=== PATIENT | female | born 1950 | race Caucasian/White ===

== ENCOUNTER → 2017-05-02 | Outpatient (CLI) | payer OTHER, BC ==
[~2017-05-02] MED LIST: LIDOCAINE VISC 2% SOLN 15 ML UDC ONE; MUPIROCIN 2% OINT 22 GM TUBE ONE
== END ==
LOC: WCC 08:05
PROVIDERS: ATTEND Family Medicine
DX: E11.621 Type 2 diabetes mellitus with foot ulcer (principal); L97.422 Non-pressure chronic ulcer of left heel and midfoot with fat layer exposed; I10 Essential (primary) hypertension; E78.2 Mixed hyperlipidemia; F33.1 Major depressive disorder, recurrent, moderate
CPT/HCPCS: 87071; 87075; 87205

== ENCOUNTER → 2017-05-04 | Outpatient (CLI) | payer OTHER, BC ==
--- NOTE | 2017-05-04 15:43 | Diagnostic Imaging Report ---
Examination: Brain MRI without Contrast History: Fall. Head injury. Headache. Memory loss. Comparison studies: None. Technique: Precontrast: Hi resolution Sag T1 with coronal and axial reformats. Axial DWI, T2, T2 flair, gradient echo or SWI Intravenous contrast: None. Findings: Structural lesions: No intra-or extra-axial masses. No hematomas. Atrophy: General: Symmetric and age appropriate. Focal: No disproportionate lobar, hippocampal, mesencephalic, pontine, or cerebellar atrophy. Tong matter: Cortex:No signal abnormalities. No encephalomalacia. Basal ganglia: No atrophy or signal abnormalities. Thalami: No signal abnormalities. Microhemorrhages: None. White matter signal intensity: No signal abnormalities. Subarachnoid spaces: There is increased signal on the FLAIR sequence within the right inferior temporal gyrus sulci posteriorly as well as in the right cerebellar folia, which could be related to artifact or fluid within the sulci. Ventricles: Normal in size and configuration. No hydrocephalus. Hippocampi, fornix and mammillary bodies: Normal in size and symmetric. Other: Skull: No bone marrow abnormalities. Vessels: Expected flow voids present in the major arteries and dural sinuses.. Sella: Normal in size. No intra-or suprasellar abnormalities. Cranio-cervical junction: No abnormalities. Patent foramen magnum. No Chiari one malformation. Paranasal sinuses: No T2 hyperintense mucosal thickening. IMPRESSION: 1. Increased signal within the posterior right inferior temporal gyrus sulci and right cerebellar folia which could be artifact or fluid within the sulci. Given the history of fall, a noncontrast head CT is recommended for further evaluation. 2. Normal brain volume. Signed by: Dr. Charisma Wilson M.D. on 05/04/2017 3:39 PM
== END ==
LOC: MRI 07:28
PROVIDERS: ATTEND Radiology Neuroradiology
DX: S91.309A Unspecified open wound, unspecified foot, initial encounter (principal); E11.42 Type 2 diabetes mellitus with diabetic polyneuropathy; S06.9X9A Unspecified intracranial injury with loss of consciousness of unspecified duration, initial encounter
CPT/HCPCS: 70551

== ENCOUNTER → 2017-05-09 | Outpatient (CLI) | payer OTHER, BC ==
[~2017-05-09] MED LIST changes: -LIDOCAINE VISC 2% SOLN 15 ML UDC ONE
== END ==
LOC: WCC 08:09
PROVIDERS: ATTEND Family Medicine
DX: E11.621 Type 2 diabetes mellitus with foot ulcer (principal); L97.422 Non-pressure chronic ulcer of left heel and midfoot with fat layer exposed; I10 Essential (primary) hypertension; E78.2 Mixed hyperlipidemia; F33.1 Major depressive disorder, recurrent, moderate

== ENCOUNTER → 2017-05-16 | Outpatient (CLI) | payer OTHER, BC | LOC: WCC 08:18 | PROVIDERS: ATTEND Family Medicine | DX: E11.621 Type 2 diabetes mellitus with foot ulcer (principal); L97.422 Non-pressure chronic ulcer of left heel and midfoot with fat layer exposed; E78.2 Mixed hyperlipidemia; I10 Essential (primary) hypertension; F33.1 Major depressive disorder, recurrent, moderate ==

== ENCOUNTER → 2017-05-23 | Outpatient (CLI) | payer OTHER, BC ==
[~2017-05-23] MED LIST changes: +LIDOCAINE VISC 2% SOLN 15 ML UDC ONE
== END ==
LOC: WCC 08:04
PROVIDERS: ATTEND Family Medicine
DX: E11.621 Type 2 diabetes mellitus with foot ulcer (principal); L97.422 Non-pressure chronic ulcer of left heel and midfoot with fat layer exposed; I10 Essential (primary) hypertension; E78.2 Mixed hyperlipidemia; F33.1 Major depressive disorder, recurrent, moderate

== ENCOUNTER → 2017-06-06 | Outpatient (CLI) | payer OTHER, BC ==
[~2017-06-06] MED LIST changes: +COLLAGENASE OINTMENT 30 GM TUBE ONE
== END ==
LOC: WCC 08:35
PROVIDERS: ATTEND Family Medicine
DX: E11.621 Type 2 diabetes mellitus with foot ulcer (principal); L97.422 Non-pressure chronic ulcer of left heel and midfoot with fat layer exposed; I10 Essential (primary) hypertension; E78.2 Mixed hyperlipidemia; F33.1 Major depressive disorder, recurrent, moderate

== ENCOUNTER → 2017-06-20 | Outpatient (CLI) | payer OTHER, BC ==
[~2017-06-20] MED LIST changes: -COLLAGENASE OINTMENT 30 GM TUBE ONE
== END ==
LOC: WCC 08:19
PROVIDERS: ATTEND Family Medicine
DX: E11.621 Type 2 diabetes mellitus with foot ulcer (principal); L97.422 Non-pressure chronic ulcer of left heel and midfoot with fat layer exposed; E78.2 Mixed hyperlipidemia; F33.1 Major depressive disorder, recurrent, moderate; I10 Essential (primary) hypertension

== ENCOUNTER → 2017-07-04 | Outpatient (CLI) | payer OTHER, BC ==
[~2017-07-04] MED LIST changes: -LIDOCAINE VISC 2% SOLN 15 ML UDC ONE
== END ==
LOC: WCC 08:46
PROVIDERS: ATTEND Family Medicine
DX: E11.621 Type 2 diabetes mellitus with foot ulcer (principal); L97.422 Non-pressure chronic ulcer of left heel and midfoot with fat layer exposed; I10 Essential (primary) hypertension; E78.2 Mixed hyperlipidemia; F33.1 Major depressive disorder, recurrent, moderate

== ENCOUNTER → 2017-07-18 | Outpatient (CLI) | payer OTHER, BC ==
[~2017-07-18] MED LIST changes: +LIDOCAINE VISC 2% SOLN 15 ML UDC ONE; -MUPIROCIN 2% OINT 22 GM TUBE ONE
== END ==
LOC: WCC 08:26
PROVIDERS: ATTEND Family Medicine
DX: E11.621 Type 2 diabetes mellitus with foot ulcer (principal); L97.422 Non-pressure chronic ulcer of left heel and midfoot with fat layer exposed; I10 Essential (primary) hypertension; E78.2 Mixed hyperlipidemia; F33.1 Major depressive disorder, recurrent, moderate

== ENCOUNTER → 2017-08-01 | Outpatient (CLI) | payer OTHER, BC ==
[~2017-08-01] MED LIST changes: +COLLAGENASE OINTMENT 30 GM TUBE ONE; +MUPIROCIN 2% OINT 22 GM TUBE ONE
== END ==
LOC: WCC 08:25
PROVIDERS: ATTEND Family Medicine
DX: E11.621 Type 2 diabetes mellitus with foot ulcer (principal); L97.422 Non-pressure chronic ulcer of left heel and midfoot with fat layer exposed; I10 Essential (primary) hypertension; E78.2 Mixed hyperlipidemia; F33.1 Major depressive disorder, recurrent, moderate

== ENCOUNTER → 2017-08-15 | Outpatient (CLI) | payer OTHER, BC | LOC: WCC 10:55 | PROVIDERS: ATTEND Family Medicine | DX: E11.621 Type 2 diabetes mellitus with foot ulcer (principal); L97.422 Non-pressure chronic ulcer of left heel and midfoot with fat layer exposed; L97.511 Non-pressure chronic ulcer of other part of right foot limited to breakdown of skin; I10 Essential (primary) hypertension; E78.2 Mixed hyperlipidemia; F33.1 Major depressive disorder, recurrent, moderate ==

== ENCOUNTER → 2017-08-29 | Outpatient (CLI) | payer OTHER, BC ==
[~2017-08-29] MED LIST changes: -COLLAGENASE OINTMENT 30 GM TUBE ONE; -MUPIROCIN 2% OINT 22 GM TUBE ONE
== END ==
LOC: WCC 08:15
PROVIDERS: ATTEND Family Medicine
DX: E11.621 Type 2 diabetes mellitus with foot ulcer (principal); L97.422 Non-pressure chronic ulcer of left heel and midfoot with fat layer exposed; L97.511 Non-pressure chronic ulcer of other part of right foot limited to breakdown of skin; I10 Essential (primary) hypertension; E78.2 Mixed hyperlipidemia; F33.1 Major depressive disorder, recurrent, moderate

== ENCOUNTER 2017-09-09 19:30 | Emergency (ER) | payer OTHER, BC ==
[~2017-09-09] VITALS: Ht 172.7 cm; Wt 115.2 kg
--- OUTSIDE RECORDS SUMMARY | 2017-09-09 19:33 | XMS REPORT | Clinical Summary ---
Author Author [facility] Address Unknown Phone Unavailable Care Team Providers Care Trouble Operator Name Role Phone Pooja Garcia MD PCP Allergies Active Allergy Reactions Severity Noted Date Comments Cefaclor Anaphylaxis High 02/15/2016 Penicillins Rash Low 02/15/2016 Current Medications Prescription Sig. Disp. Refills Start End Date Status Date ALPRAZolam (XANAX) 0.25 01/27/20 Active MG tablet 16 amLODIPine (NORVASC) 10 11/25/19 Active MG tablet 16 atorvastatin (LIPITOR) 10 12/10/19 Active MG tablet 16 bisoprolol (ZEBETA) 5 MG 12/21/19 Active tablet 16 FARXIGA 10 mg tablet 01/26/20 Active 16 diclofenac (VOLTAREN) 1 % 02/04/20 Active gel 16 DULoxetine (CYMBALTA) 60 11/25/19 Active MG capsule 16 HYDROcodone-acetaminophen 12/28/19 Active (NORCO 10-325) 10-325 mg 16 per tablet lisinopril 01/06/20 Active (PRINIVIL,ZESTRIL) 5 MG 16 tablet metFORMIN (GLUCOPHAGE) 11/25/19 Active 1000 MG tablet 16 BD INSULIN PEN NEEDLE UF 12/03/19 Active MINI 31 gauge x 3/16" 16 needle LYRICA 75 mg capsule 12/17/19 Active 16 diphenhydrAMINE Take 25 mg by mouth Active (BENADRYL) 25 mg tablet nightly as needed for allergies. calcium citrate-vitamin Take 1 tablet by mouth 2 Active D3 (CITRACAL+D) 315-200 (two) times a day. mg-unit per tablet omega-3 fatty Take by mouth. Active acids-vitamin E (FISH OIL) 1,000 mg capsule docusate sodium (COLACE) Take 100 mg by mouth 2 Active 100 MG capsule (two) times a day. famotidine (PEPCID) 20 MG Take 20 mg by mouth 2 Active tablet (two) times a day. L. acidophilus-L. Take by mouth. Active rhamnosus (PROBIOTIC) 15 billion cell capsule liraglutide (VICTOZA Inject 1.8 mg under the Active 2-MARK) 0.6 mg/0.1 mL (18 skin daily. mg/3 mL) pen injector cyclobenzaprine Take 5 mg by mouth 2 Active (FLEXERIL) 5 MG tablet (two) times a day as needed for muscle spasms. fexofenadine (SAVANAH) Take 1 tablet (180 mg 30 tablet 0 02/15/20 180 MG tabletIndications: total) by mouth daily. 16 17 Bee sting, undetermined intent, initial encounter Active Problems Problem Noted Date Uterine cancer 05/14/1982 Neuropathy Overview: feet Hypertension Hyperlipidemia GERD (gastroesophageal reflux disease) Diabetes Depression Chronic right shoulder pain Anxiety Seasonal allergies Back pain Raynaud disease Family History Medical History Relation Name Comments Lung cancer Father Heart attack Maternal Grandfather Stroke Maternal Grandmother Heart attack Mother Heart attack Paternal Grandmother Heart attack Sister Relation Name Status Comments Father Maternal Grandfather Maternal Grandmother Mother Paternal Grandmother Sister Social History Tobacco Use Types Packs/Day Years Used Date Former Smoker Cigarettes 0.5 5 Comments: quit at age 23 Sex Assigned at Date Recorded Not on file Last Filed Vital Signs Not on file Plan of Treatment Health Maintenance Due Date Last Done Comments FOOT EXAM 1962 OPHTHALMOLOGY EXAM 1962 PAP SMEAR 1973 COLONOSCOPY 2002 MAMMOGRAM 2002 SHINGRIX VACCINE (#1) 2002 ZOSTER VACCINE 2012 INFLUENZA VACCINE 12/12/2017 Results Not on fileafter 09/08/2016 Insurance Payer Benefit Subscriber ID Type Phone Address Plan / Group [facility] xxxxxxxxx [address] CIGNA CIGNA OPEN xxxxxxxxxxx HMO ACCESS[place] [address]
--- OUTSIDE RECORDS SUMMARY | 2017-09-09 19:33 | XMS REPORT ---
Author Author [facility] Address Unknown Phone Unavailable Care Team Providers Care Executive Chairman Name Role Phone CHRISTINE POLK Unavailable Unavailable Problems This patient has no known problems. Allergies, Adverse Reactions, Alerts This patient has no known allergies or adverse reactions. Medications This patient has no known medications. Results Test Description Test Time Test Comments Text Results Atomic Results Result Comments MRI BRAIN WO [place] [address] [place] [address] Patient Name: VASQUEZ HAWTHORNE MR #: [id number] : 1950 Age/Sex: 66/F Req # : [id number] Adm Physician: Ordered by: CHRISTINE POLK MD Report #: [id number] Location: MRI Room/Bed: Procedure: [id number] MRI/MRI BRAIN WO Exam Date: 05/04/17 Exam Time: 0800 REPORT STATUS: Signed Examination: Brain MRI without Contrast History: Fall. Head injury. Headache. Memory loss. Comparison studies: None. Technique: Precontrast: Hi resolution Sag T1 with coronal and axial reformats. Axial DWI, T2, T2 flair, gradient echo or SWI Intravenous contrast: None. Findings: Structural lesions: No intra-or extra- axial masses. No hematomas. Atrophy: General: Symmetric and age appropriate. Focal: No disproportionate lobar, hippocampal, mesencephalic, pontine, or cerebellar atrophy. Tong matter: Cortex:No signal abnormalities. No encephalomalacia. Basal ganglia: No atrophy or signal abnormalities. Thalami: No signal abnormalities. Microhemorrhages: None. White matter signal intensity: No signal abnormalities. Subarachnoid spaces: There is increased signal on the FLAIR sequence within the right inferior temporal gyrus sulci posteriorly as well as in the right cerebellar folia, which could be related to artifact or fluid within the sulci. Ventricles: Normal in size and configuration. No hydrocephalus. Hippocampi, fornix and mammillary bodies: Normal in size and symmetric. Other: Skull: No bone marrow abnormalities. Vessels: Expected flow voids present in the major arteries and dural sinuses.. Sella: Normal in size. No intra-or suprasellar abnormalities. Cranio-cervical junction: No abnormalities. Patent foramen magnum. No Chiari one malformation. Paranasal sinuses: No T2 hyperintense mucosal thickening. IMPRESSION: 1. Increased signal within the posterior right inferior temporal gyrus sulci and right cerebellar folia which could be artifact or fluid within the sulci. Given the history of fall, a noncontrast head CT is recommended for further evaluation. 2. Normal brain volume. Signed by: Dr. Charisma Wilson M.D. on 05/04/2017 3:39 PM Dictated By: CHARISMA LANDEROS MD 153 Transcribed By: JACINTO on 05/04/17 153 COPY TO: CHRISTINE POLK MD
[2017-09-09] MEDS ORDERED: PROMETHAZINE HCL (IM) 25 MG/ML VIAL IV STA (19:54)
[2017-09-09] MEDS ORDERED: SODIUM CHLORIDE 0.9% 1000ML 1,000 ML IV STA (19:54)
[2017-09-09] MEDS ORDERED: ASPIRIN 81 MG CHEW TAB PO ONE (20:00)
[2017-09-09] MEDS ORDERED: ONDANSETRON HCL 4 MG ORAL DISINTEGRATING TAB PO ONE (20:15)
--- NOTE | 2017-09-09 20:36 | Diagnostic Imaging Report ---
EXAM: CT Abdomen and Pelvis WITHOUT contrast INDICATION: Flank pain, stone COMPARISON: None. TECHNIQUE: Abdomen and pelvis were scanned utilizing a multidetector helical scanner from the lung base to the pubic symphysis without administration of IV contrast. Absence of intravenous contrast decreases sensitivity for detection of focal lesions and vascular pathology. Coronal and sagittal reformations were obtained. Stone protocol is performed. IV CONTRAST: None. ORAL CONTRAST: None RADIATION DOSE: Total DLP: 949.73 mGy*cm Estimated effective dose: (DLP x 0.015 x size factor) mSv COMPLICATIONS: None FINDINGS: LINES and TUBES: None. LOWER THORAX: Unremarkable HEPATOBILIARY: The liver is diffuse hypodense compared to the spleen, consistent with diffuse hepatic diffuse hepatic steatosis. No focal hepatic lesions. No biliary ductal dilation. GALLBLADDER: Gallbladder has been surgically resected. SPLEEN: No splenomegaly. PANCREAS: No focal masses or ductal dilatation. ADRENALS: No adrenal nodules KIDNEYS/URETERS: No hydronephrosis. 2 cm hypodensity in the inferior pole lateral aspect of the right kidney measuring about 20HU suggestive of a simple or minimally complicated cyst. No stones. GI TRACT: No abnormal distention, wall thickening, or evidence of bowel obstruction. Appendix is normal. PELVIC ORGANS/BLADDER: Unremarkable. LYMPH NODES: No lymphadenopathy. VESSELS: Unremarkable. PERITONEUM / RETROPERITONEUM: No free air or fluid. BONES: There are moderate degenerative changes in the lumbar spine associated with levorotoscoliosis of the thoracolumbar junction. SOFT TISSUES: Unremarkable. IMPRESSION: 1. No evidence of hydronephrosis or nephrolithiasis. 2. Diffuse hepatic steatosis. Signed by: Dr. Abdias Manley M.D. on 09/09/2017 8:32 PM
[2017-09-09 20:57] LABS: BASOPHILS # (AUTO) 0.1 (0.0-0.1); BASOPHILS % 0.6 % (0.0-1.0); EOSINOPHILS # (AUTO) 0.1 (0.0-0.4); EOSINOPHILS % 1.3 % (0.0-6.0); HEMATOCRIT 46.7 % (34.2-44.1); HEMOGLOBIN 15.2 g/dL (12.0-16.0); LYMPHOCYTES # (AUTO) 2.8 (1.0-3.2); LYMPHOCYTES % 32.3 % (18.0-39.1); MEAN CORPUSCULAR HGB CONC 32.5 g/dL (31-35); MEAN CORPUSCULAR VOLUME 89.1 fL (81-99); MONOCYTES # (AUTO) 0.5 (0.2-0.8); MONOCYTES % 6.1 % (4.4-11.3); NEUTROPHILS # (AUTO) 5.1 (2.1-6.9); NEUTROPHILS % 59.5 % (38.7-80.0); PLATELET COUNT 218 x10e3/uL (140-360); RED BLOOD COUNT 5.24 x10e6/uL (3.6-5.1); RED CELL DISTRIBUTION WIDTH 14.3 % (11.7-14.4)
[2017-09-09 21:19] LABS: ALANINE AMINOTRANSFERASE 49 IU/L (0-55); ALBUMIN 4.3 g/dL (3.5-5.0); ALBUMIN/GLOBULIN RATIO 1.1 (0.8-2.0); ALKALINE PHOSPHATASE 54 IU/L (40-150); AMYLASE 48 U/L (25-125); ANION GAP 18.8 mmol/L (8-16); BLOOD UREA NITROGEN 18 mg/dL (7-26); BUN/CREATININE RATIO 19 (6-25); CALCIUM 10.9 mg/dL (8.4-10.2); CARBON DIOXIDE 25 mmol/L (22-29); CHLORIDE 102 mmol/L (98-107); CREATINE KINASE 43 IU/L (29-168); CREATININE, SERUM 0.94 mg/dL (0.57-1.11); EST GLOMERULAR FILTRATION RATE 60 ML/MIN (60-); GLUCOSE 195 mg/dL (74-118); LIPASE 71 U/L (8-78); POTASSIUM 3.8 mmol/L (3.5-5.1); SODIUM 142 mmol/L (136-145)
[2017-09-09 21:39] LABS: THYROID STIMULATING HORMONE 1.354 uIU/mL (0.350-4.940)
[2017-09-09 21:57] LABS: CLARITY,URINE CLEAR (CLEAR); COLOR,URINE YELLOW (YELLOW); LEUKOCYTE ESTERASE ,URINE NEGATIVE (NEGATIVE); NITRITE,URINE NEGATIVE (NEGATIVE); PROTEIN,URINE DIPSTICK NEGATIVE (NEGATIVE)
[2017-09-09 21:58] LABS: BILIRUBIN,URINE NEGATIVE (NEGATIVE); KETONES,URINE TRACE (NEGATIVE); URINE UROBILINOGEN 0.2 mg/dL (0.2 - 1)
[2017-09-09 22:13] LABS: EPITHELIAL CELLS,URINE RARE /LPF
[2017-09-09 22:24] VITALS: BP 108/62
== END 2017-09-09 22:35 | disposition home or self-care (01) ==
LOC: ER 19:30
DX: R11.2 Nausea with vomiting, unspecified (principal); R10.9 Unspecified abdominal pain; I10 Essential (primary) hypertension; E11.9 Type 2 diabetes mellitus without complications; E78.5 Hyperlipidemia, unspecified; K21.9 Gastro-esophageal reflux disease without esophagitis; I73.00 Raynaud's syndrome without gangrene; G62.9 Polyneuropathy, unspecified; G89.29 Other chronic pain
CPT/HCPCS: 36415; 74176; 80053; 81001; 82150; 82550; 82553; 82948; 83690; 83735; 84443; 84484; 85025; 99284; J7030

== ENCOUNTER 2017-09-17 14:51 | Inpatient (IN) | payer OTHER, BC ==
[~2017-09-17] VITALS: Ht 172.7 cm; Wt 118.9 kg
--- OUTSIDE RECORDS SUMMARY | 2017-09-17 14:53 | XMS REPORT | Clinical Summary ---
Author Author [facility] Address Unknown Phone Unavailable Care Team Providers Care Simulation Developer Name Role Phone Pooja Garcia MD PCP [...] INFLUENZA VACCINE 12/12/2017 Results Not on fileafter 09/16/2016 Insurance Payer Benefit Subscriber ID Type Phone Address Plan / Group [facility] xxxxxxxxx O [address] CIGNA CIGNA OPEN xxxxxxxxxxx H[place] ACCESS[place] [address]
--- OUTSIDE RECORDS SUMMARY | 2017-09-17 14:53 | XMS REPORT | Continuity of Care Document ---
Author Author [facility] Organization [facility] Address [address] [place] [address] Phone Unavailable Care Team Providers Care Regional Director Name Role Phone REUBEN LÓPEZ MD PCP Insurance Providers Guarantor Freya Hawthorne Address [address] [place] [address] Email Payer [facility] Hmo Policy Number [id number] Subscriber's Name Hawthorne,Freya S Relationship 18 Self / Same As Patient Group Number [id number] Group Name [facility] Effective Date 17 Payer [facility] Policy Number [id number] Subscriber's Name Natividad Hawthornelyjalyn Magallon Relationship 18 Self / Same As Patient Group Number [id number] Group Name [facility] Effective Date 16 Advance Directives Directive Response Recorded Date/Time Does the patient have an advance directive? No 09/09/17 7:27pm If yes, is advance directive on file with [facility]? No 05/01/17 2:38pm If not on file with [facility] will patient provide a copy? No 05/01/17 2:38pm Do you have a Directive to Physician? No 09/09/17 7:27pm Do you have a Medical Power of Taxi Proprietor? No 09/09/17 7:27pm Do you have an out of hospital Do Not Resuscitate Order? No 09/09/17 7:27pm Do you have any special needs we should be aware of? No 09/09/17 7:27pm Do you have a support person here with you today? Yes 09/09/17 7:27pm Did patient receive Notice of Privacy Practices? Yes 09/09/17 7:27pm Did patient receive patient rights and responsibilities? Yes 09/09/17 7:27pm Problems No problem information available. Medications No medication information available. Social History Smoking Status Start Date Stop Date Never Smoker Hospital Discharge Instructions No hospital discharge instruction information available. Plan of Care Discharge Date 09/09/17 10:35pm Disposition HOME, SELF-CARE Condition at Discharge Stable Instructions/Education Provided Flank Pain Vomiting - Adult Forms Provided Work/School Excuse Prescriptions See Medication Section Additional Instructions/Education FOLLOW UP WITH YOUR DOCTOR IN 2 DAYS IF NOT BETTER TAKE MEDICATIONS DIRECTED DRINK PLENTY OF FLUIDS TAKE CLEAR LIQUIDS ONLY (FREQUENT SIPS) FOR THE NEXT 24 HOURS Functional Status No functional status information available. Allergies, Adverse Reactions, Alerts Allergen Type Severity Reaction Status Last Updated Penicillin Allergy Unknown Active 09/09/17 Cephalosporins Allergy Unknown Active 09/09/17 Cefaclor Allergy Unknown Active 09/09/17 DTAP VACCINE Allergy Unknown Active 09/09/17 Immunizations No immunization information available. Vital Signs Acute Vital Signs Vital Response Date/Time Temperature (Fahrenheit) 98.3 degrees F (97.6 - 99.5) 09/09/2017 10:24pm Pulse Pulse Rate (adult) 99 bpm (60 - 90) 09/09/2017 10:24pm Respiratory Rate 18 bpm (12 - 24) 09/09/2017 10:24pm Blood Pressure 108/62 mm Hg 09/09/2017 10:24pm Height 5 ft 8 in 09/09/2017 7:56pm Weight 254 lb 09/09/2017 7:56pm Body Mass Index 38.6 kg/m^2 09/09/2017 7:56pm Results Laboratory Results Test Name Result Units Flags Reference Collection Date/Time Result Date/ Time Comments White Blood Count 8.62 x10e3/uL 4.8-10.8 09/09/2017 7:50pm 09/09/2017 9 :10pm Red Blood Count 5.24 x10e6/uL H 3.6-5.1 09/09/2017 7:50pm 09/09/2017 9: 10pm Hemoglobin 15.2 g/dL 12.0-16.0 09/09/2017 7:50pm 09/09/2017 9:10pm Hematocrit 46.7 % H 34.2-44.1 09/09/2017 7:50pm 09/09/2017 9:10pm Mean Corpuscular Volume 89.1 fL 81-99 09/09/2017 7:50pm 09/09/2017 9: 10pm Mean Corpuscular Hemoglobin 29.0 pg 28-32 09/09/2017 7:50pm 09/09/2017 9:10pm Mean Corpuscular Hemoglobin Concent 32.5 g/dL 31-35 09/09/2017 7:50pm 09/09/2017 9:10pm Red Cell Distribution Width 14.3 % 11.7-14.4 09/09/2017 7:502017 9:10pm Platelet Count 218 x10e3/uL 140-360 09/09/2017 7:50pm 09/09/2017 9: 10pm Neutrophils (%) (Auto) 59.5 % 38.7-80.0 09/09/2017 7:50pm 09/09/2017 9: 10pm Lymphocytes (%) (Auto) 32.3 % 18.0-39.1 09/09/2017 7:50pm 09/09/2017 9: 10pm Monocytes (%) (Auto) 6.1 % 4.4-11.3 09/09/2017 7:5009/09/2017 9: 10pm Eosinophils (%) (Auto) 1.3 % 0.0-6.0 09/09/2017 7:50pm 09/09/2017 9: 10pm Basophils (%) (Auto) 0.6 % 0.0-1.0 09/09/2017 7:pm 09/09/2017 9:10pm IM GRANULOCYTES % 0.2 % 0.0-1.0 09/09/2017 7:50pm 09/09/2017 9:10pm Neutrophils # (Auto) 5.1 2.1-6.9 09/09/2017 7:5009/09/2017 9:10pm Lymphocytes # (Auto) 2.8 1.0-3.2 09/09/2017 7:50pm 09/09/2017 9:10pm Monocytes # (Auto) 0.5 0.2-0.8 09/09/2017 7:50pm 09/09/2017 9:10pm Eosinophils # (Auto) 0.1 0.0-0.4 09/09/2017 7:50pm 09/09/2017 9:10pm Basophils # (Auto) 0.1 0.0-0.1 09/09/2017 7:50pm 09/09/2017 9:10pm Absolute Immature Granulocyte (auto 0.02 x10e3/uL 0-0.1 09/09/2017 7: 50pm 09/09/2017 9:10pm Urine Color YELLOW YELLOW 09/09/2017 8:40pm 09/09/2017 9:58pm Urine Clarity CLEAR CLEAR 09/09/2017 8:40pm 09/09/2017 9:58pm Urine Specific Milner 1.015 1.010-1.025 09/09/2017 8:40pm 2017 9:58pm Urine pH 5 5 - 7 09/09/2017 8:40pm 09/09/2017 9:58pm Urine Leukocyte Esterase NEGATIVE NEGATIVE 09/09/2017 8:40pm 2017 9:58pm Urine Nitrite NEGATIVE NEGATIVE 09/09/2017 8:40pm 09/09/2017 9:58pm Urine Protein NEGATIVE NEGATIVE 09/09/2017 8:40pm 09/09/2017 9:58pm Urine Glucose (UA) 3+ H NEGATIVE 09/09/2017 8:40pm 09/09/2017 9:58pm Urine Ketones TRACE H NEGATIVE 09/09/2017 8:40pm 09/09/2017 9:58pm Urine Urobilinogen 0.2 mg/dL 0.2 - 1 09/09/2017 8:40pm 09/09/2017 9: 58pm Urine Bilirubin NEGATIVE NEGATIVE 09/09/2017 8:40pm 09/09/2017 9: 58pm Urine Blood TRACE H NEGATIVE 09/09/2017 8:40pm 09/09/2017 9:58pm Urine WBC NONE /HPF 0-5 09/09/2017 8:40pm 09/09/2017 10:13pm Urine RBC NONE /HPF 0-5 09/09/2017 8:40pm 09/09/2017 10:13pm Urine Bacteria NONE /HPF NONE 09/09/2017 8:40pm 09/09/2017 10:13pm Urine Epithelial Cells RARE /LPF NONE 09/09/2017 8:40pm 09/09/2017 10: 13pm Sodium Level 142 mmol/L 136-145 09/09/2017 7:50pm 09/09/2017 9:22pm Potassium Level 3.8 mmol/L 3.5-5.1 09/09/2017 7:50pm 09/09/2017 9:22pm Chloride Level 102 mmol/L 98-107 09/09/2017 7:50pm 09/09/2017 9:22pm Carbon Dioxide Level 25 mmol/L 09/09/2017 7:50pm 09/09/2017 9: 22pm Anion Gap 18.8 mmol/L H 8-16 09/09/2017 7:50pm 09/09/2017 9:22pm Blood Urea Nitrogen 18 mg/dL 12-0609/09/2017 7:50pm 09/09/2017 9:22pm Creatinine 0.94 mg/dL 0.57-1.11 09/09/2017 7:50pm 09/09/2017 9:22pm BUN/Creatinine Ratio 19 6-09/09/2017 7:50pm 09/09/2017 9:22pm Estimat Glomerular Filtration Rate 60 ML/MIN 60- 09/09/2017 7:50pm 9:22pm Ranges were taken from the National Kidney Disease Education Program and the National Kidney Foundation literature. Reference ranges: 60 or greater: Normal 16-59 (for 3 consecutive months): Chronic kidney disease 15 or less: Kidney failure Glucose Level 195 mg/dL H 74-118 09/09/2017 7:50pm 09/09/2017 9:22pm Calcium Level 10.9 mg/dL H 8.4-10.2 09/09/2017 7:50pm 09/09/2017 9:22pm Bedside Glucose 176 mg/dL H 70-120 09/09/2017 8:00pm 09/09/2017 8:41pm Meter ID: [id number] Magnesium Level 2.0 MG/DL 1.3-2.1 09/09/2017 7:50pm 09/09/2017 9:22pm Total Bilirubin 0.7 mg/dL 0.2-1.2 09/09/2017 7:50pm 09/09/2017 9:22pm Aspartate Amino Transf (AST/SGOT) 38 IU/L H 5-34 09/09/2017 7:50pm 09/09 9:22pm Alanine Aminotransferase (ALT/SGPT) 49 IU/L 0-55 09/09/2017 7:50pm 9:22pm Total Protein 8.1 g/dL 6.5-8.1 09/09/2017 7:50pm 09/09/2017 9:22pm Albumin 4.3 g/dL 3.5-5.0 09/09/2017 7:50pm 09/09/2017 9:22pm Globulin 3.8 g/dL H 2.3-3.5 09/09/2017 7:50pm 09/09/2017 9:22pm Albumin/Globulin Ratio 1.1 0.8-2.0 09/09/2017 7:5009/09/2017 9: 22pm Alkaline Phosphatase 54 IU/L 40-150 09/09/2017 7:5009/09/2017 9: 22pm Creatine Kinase 43 IU/L 29-168 09/09/2017 7:50pm 09/09/2017 9:22pm Creatine Kinase MB 1.50 ng/mL 0-5.0 09/09/2017 7:50pm 09/09/2017 10: 06pm Troponin I < 0.001 ng/mL 0-0.300 09/09/2017 7:5009/09/2017 10:06pm Amylase Level 48 U/L 25-125 09/09/2017 7:5009/09/2017 9:22pm Lipase 71 U/L 8-78 09/09/2017 7:50pm 09/09/2017 9:22pm Thyroid Stimulating Hormone (TSH) 1.354 uIU/mL 0.350-4.940 09/09/2017 7: 50pm 09/09/2017 10:06pm Microbiology Results Procedure Source Organism/Result Collection Date/Time Result Date/Time Result Status Wound Culture Foot, Left STREP AGALACTIAE GROUP B 05/02/2017 9:30am 2016 10:25am Final Procedures Procedure Status Date Provider(s) Magnetic resonance imaging of brain without contrast Active 05/04/[address] of abdomen and pelvis without contrast Active 09/09/17 TATIANA ESCALANTE MD Encounters Encounter Location Arrival/Admit Date Discharge/Depart Date Attending Provider Departed Emergency Room [facility] 09/09/17 7:30pm 10:35pm TATIANA ESCALANTE MD Registered Clinic [facility] 08/29/17 8:15am MAGO MCKEON MD Registered Clinic [facility] 08/15/17 10:55am MAGO MCKEON MD Registered Clinic [facility] 08/01/17 8:25am MAGO MCKEON MD Registered Clinic [facility] 07/18/17 8:26am MAGO MCKEON MD Registered Clinic [facility] 07/04/17 8:46am MAGO MCKEON MD Registered Clinic [facility] 06/20/17 8:19am MAGO MCKEON MD Registered Clinic [facility] 06/06/17 8:35am MAGO MCKEON MD Registered Clinic [facility] 05/23/17 8:04am MAGO MCKEON MD Registered Clinic [facility] 05/16/17 8:18am MAGO MCKEON MD Registered Clinic [facility] 05/09/17 8:09am MAGO MCKEON MD Registered Clinic [facility] 05/04/17 7:28am CHRISTINE POLK MD Registered Clinic [facility] 05/02/17 8:05am MAGO MCKEON MD
[2017-09-17] MEDS ORDERED: SODIUM CHLORIDE 0.9% 1000ML 1,000 ML IV STA (15:18)
[2017-09-17 16:27] LABS: BASOPHILS # (AUTO) 0.1 (0.0-0.1); BASOPHILS % 0.4 % (0.0-1.0); HEMATOCRIT 42.1 % (34.2-44.1); HEMOGLOBIN 13.8 g/dL (12.0-16.0); LYMPHOCYTES # (AUTO) 0.5 (1.0-3.2); LYMPHOCYTES % 3.7 % (18.0-39.1); MEAN CORPUSCULAR HEMOGLOBIN 29.2 pg (28-32); MEAN CORPUSCULAR HGB CONC 32.8 g/dL (31-35); MEAN CORPUSCULAR VOLUME 89.2 fL (81-99); NEUTROPHILS # (AUTO) 12.5 (2.1-6.9); NEUTROPHILS % 87.9 % (38.7-80.0); PLATELET COUNT 167 x10e3/uL (140-360); RED BLOOD COUNT 4.72 x10e6/uL (3.6-5.1); RED CELL DISTRIBUTION WIDTH 14.5 % (11.7-14.4)
[2017-09-17] MEDS ORDERED: ACETAMINOPHEN 650 MG SUPP PR ONE (16:30)
--- NOTE | 2017-09-17 16:40 | Diagnostic Imaging Report ---
PROCEDURE:FOOT COMPLETE BILATERAL INDICATION:Bilateral feet ulcers. COMPARISON:None. FINDINGS: Status post amputation of the left first digit at the level of proximal interphalangeal joint, right first toe at the level of distal portion of proximal phalanx, and right fifth toe at the level of tarsometatarsal joint. Erosion versus amputation of the right fourth digit at the level of the proximal interphalangeal joint. Bilateral second through fourth metatarsal mild periosteal thickening/irregularity. No erosion or abnormal soft tissue calcification. No acute displaced fracture or dislocation. Bilateral small dorsal and calcaneal spurring as well as a small plantar right calcaneal enthesophyte. Millis screw overlying right calcaneus. Soft tissues are unremarkable. CONCLUSION: No definite radiographic evidence of osteomyelitis. Multiple amputations as detailed above. Right fourth toe amputation at the level of proximal interphalangeal joint versus less likely erosion of the distal and medial phalanges. Please correlate clinically. If there is high clinical concern for osteomyelitis, consider obtaining MRI for better evaluation. Dictated by: Colin Fisher M.D. on 09/17/2017 at 16:41 Electronically approved by: Colin Fisher M.D. on 09/17/2017 at 16:41
[2017-09-17 16:41] LABS: ALANINE AMINOTRANSFERASE 37 IU/L (0-55); ALBUMIN 3.8 g/dL (3.5-5.0); ALBUMIN/GLOBULIN RATIO 1.1 (0.8-2.0); ALKALINE PHOSPHATASE 56 IU/L (40-150); ANION GAP 16.3 mmol/L (8-16); BLOOD UREA NITROGEN 13 mg/dL (7-26); BUN/CREATININE RATIO 15 (6-25); CALCIUM 9.7 mg/dL (8.4-10.2); CARBON DIOXIDE 24 mmol/L (22-29); CHLORIDE 102 mmol/L (98-107); CREATININE, SERUM 0.85 mg/dL (0.57-1.11); EST GLOMERULAR FILTRATION RATE > 60 ML/MIN (60-); GLUCOSE 173 mg/dL (74-118); POTASSIUM 4.3 mmol/L (3.5-5.1); SODIUM 138 mmol/L (136-145)
[2017-09-17] MEDS ORDERED: ACETAMINOPHEN 325 MG TAB PO ONE (16:45)
[2017-09-17] MEDS ORDERED: TRIMETHOPRIM/SULFAMETHOXAZOLE 160-800 MG TAB PO ONE (16:45)
[2017-09-17] MEDS ORDERED: MORPHINE SULFATE 2 MG/ML SYR IV PRN (17:00)
[2017-09-17] MEDS ORDERED: VANCOMYCIN 1GM/NS 250 ML 250 ML IV ONE (17:00)
[2017-09-17] MEDS ORDERED: LEVOFLOXACIN 500MG/D5W 100ML 100 ML IV ONE (17:00)
[2017-09-17] MEDS ORDERED: ONDANSETRON HCL INJ 2 MG/ML VIAL IV PRN (17:30)
[2017-09-17] MEDS ORDERED: ONDANSETRON HCL 4 MG ORAL DISINTEGRATING TAB PO PRN (18:00)
--- OUTSIDE RECORDS SUMMARY | 2017-09-17 19:24 | XMS REPORT | Clinical Summary ---
Author Author [facility] Address Unknown Phone Unavailable Care Team Providers Care Cover Creaser Name Role Phone Pooja Garcia MD PCP [...] ID Type Phone Address Plan / Group [facility] xxxxxxxxx [address] CIGNA CIGNA OPEN xxxxxxxxxxx HMO ACCESS/[place] [address]
--- NOTE | 2017-09-17 21:27 | History and Physical ---
CHIEF COMPLAINT: This is a 66-year-old lady, comes in with right lower extremity pain and swelling. HISTORY OF PRESENTING ILLNESS: This is Ms. Valdivia, comes in with right lower extremity swelling and erythema and tenderness. The patient has had neuropathy for longtime, therefore did not feel any swelling or erythema, but this morning when she woke up and she saw it, that she came to emergency room, was admitted for cellulitis of right lower extremity. 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 SURGICAL HISTORY: Left toe amputation, great toe amputation, left shoulder surgery for rotator cuff, skin cancer removal. The patient had hysterectomy and cholecystectomy too. ALLERGIES: PATIENT IS ALLERGIC TO LEVAQUIN AND ALSO CEPHALOSPORINS. MEDICINES: She is not sure and she can remember is metformin, and atorvastatin. REVIEW OF SYSTEMS: Negative for chest pain. No shortness of breath. No nausea, vomiting, diarrhea. No constipation. No rectal bleeding. No hematochezia, no hematemesis. Positive for sensory deficit in the right lower extremities. PHYSICAL EXAMINATION: GENERAL: Patient is alert and oriented x3. VITAL SIGNS: Temperature is 101.1, pulse is 139, blood pressure is 116/62. HEENT: Normocephalic, atraumatic. Pupils were reactive to light and accommodation. CVS: S1 and S2 normal. Regular rate and rhythm. ABDOMEN: Nontender, nondistended. EXTREMITIES: Right lower extremity with surrounding erythema in the right ankle area with tenderness and redness present on it too. Positive for edema and also positive for erythema extending on to mid calf and also into the mid dorsum of the foot. LABORATORY VALUES: Initial white count was 14,000; hemoglobin was 13.8; hematocrit was 42; neutrophil count was 87.9. Chemistry: Sodium of 138, potassium of 4.3. IMAGING: Foot x-ray did not show any osteomyelitis. ASSESSMENT: Cellulitis of right lower extremity. The patient has been on vancomycin 1 g q.12h. A consult with Dr. Del Valle will be done. A peripherally inserted central catheter line might be needed for an outpatient basis. Dopplers will be done. Sliding scale will be started. The patient will be started back on her home medication, and also will continue monitoring the patient along with infectious disease. Further recommendations on clinical course. Will also keep the right foot elevated and await testing and studies. Job#: [id number]
[2017-09-17] MEDS ORDERED: DEXTROSE 50% SYRINGE 50 ML IV PRN (22:00)
[2017-09-18] VITALS (7 sets, daily range): BP systolic 102–139; BP diastolic 50–73
[2017-09-18 04:08] LABS: CLARITY,URINE CLEAR (CLEAR); COLOR,URINE YELLOW (YELLOW)
[2017-09-18 04:09] LABS: BILIRUBIN,URINE NEGATIVE (NEGATIVE); KETONES,URINE 2+ (NEGATIVE); LEUKOCYTE ESTERASE ,URINE NEGATIVE (NEGATIVE); NITRITE,URINE NEGATIVE (NEGATIVE); PROTEIN,URINE DIPSTICK TRACE (NEGATIVE); URINE UROBILINOGEN 0.2 mg/dL (0.2 - 1)
[2017-09-18] MEDS ORDERED: VERAPAMIL ER120 MG (04:22)
[2017-09-18] MEDS ORDERED: PRISTIQ ER50 MG PO (04:22)
[2017-09-18] MEDS ORDERED: LISINOPRIL2.5 MG PO (04:22)
[2017-09-18] MEDS ORDERED: ATORVASTATIN CA20 MG PO (04:22)
[2017-09-18] MEDS ORDERED: XANAX0.25 MG (04:22)
[2017-09-18] MEDS ORDERED: SEROQUEL25 MG PO (04:22)
[2017-09-18] MEDS ORDERED: VOLTAREN100 GM TOP (04:22)
[2017-09-18] MEDS ORDERED: LYRICA75 MG (04:22)
[2017-09-18] MEDS ORDERED: METFORMIN HCL500 MG PO (04:22)
[2017-09-18 04:37] LABS: BACTERIA,URINE RARE /HPF; EPITHELIAL CELLS,URINE RARE /LPF; WBC,URINE (MAN) 0-5 /HPF (0-5)
[2017-09-18] MEDS: ACETAMINOPHEN 325 MG TAB PO PRN ×2 (04:50→19:53)
[2017-09-18] MEDS ORDERED: SODIUM CHLORIDE 0.9% 250ML 250 ML ONE (04:51)
[2017-09-18] MEDS: VANCOMYCIN 1GM/NS 250 ML 250 ML IV SCH ×2 (05:13→16:55)
[2017-09-18 06:47] LABS: BASOPHILS % 0.2 % (0.0-1.0); HEMATOCRIT 35.4 % (34.2-44.1); HEMOGLOBIN 11.6 g/dL (12.0-16.0); LYMPHOCYTES % 7.8 % (18.0-39.1); MEAN CORPUSCULAR HGB CONC 32.8 g/dL (31-35); MEAN CORPUSCULAR VOLUME 88.5 fL (81-99); MONOCYTES # (AUTO) 0.7 (0.2-0.8); MONOCYTES % 5.9 % (4.4-11.3); NEUTROPHILS # (AUTO) 10.5 (2.1-6.9); NEUTROPHILS % 85.6 % (38.7-80.0); PLATELET COUNT 144 x10e3/uL (140-360); RED CELL DISTRIBUTION WIDTH 14.8 % (11.7-14.4)
[2017-09-18 07:21] LABS: ALANINE AMINOTRANSFERASE 34 IU/L (0-55); ALBUMIN 2.9 g/dL (3.5-5.0); ALKALINE PHOSPHATASE 45 IU/L (40-150); ANION GAP 11.7 mmol/L (8-16); BLOOD UREA NITROGEN 13 mg/dL (7-26); BUN/CREATININE RATIO 18 (6-25); CALCIUM 8.9 mg/dL (8.4-10.2); CARBON DIOXIDE 23 mmol/L (22-29); CHLORIDE 105 mmol/L (98-107); CREATININE, SERUM 0.73 mg/dL (0.57-1.11); EST GLOMERULAR FILTRATION RATE > 60 ML/MIN (60-); GLUCOSE 120 mg/dL (74-118); POTASSIUM 3.7 mmol/L (3.5-5.1); SODIUM 136 mmol/L (136-145)
[2017-09-18] MEDS: INSULIN REGULAR, HUMAN 100 UNIT/1 ML 3ML VIAL SQ SCH ×4 (07:30→21:00)
[2017-09-18] MEDS: ALPRAZOLAM 0.25 MG TAB PO SCH ×2 (08:30→17:00)
[2017-09-18] MEDS: PREGABALIN 75 MG CAP PO SCH ×2 (08:30→16:45)
[2017-09-18] MEDS: PANTOPRAZOLE SOD 40 MG TABEC PO SCH (08:30)
[2017-09-18] MEDS: METFORMIN HCL 500 MG TAB PO SCH ×2 (08:30→16:45)
[2017-09-18] MEDS: DESVENLAFAXINE SUCCINATE 50 MG TAB.SR.24H PO SCH ×2 (08:30→16:45)
[2017-09-18] MEDS ORDERED: IBUPROFEN 600 MG TAB PO SCH (09:00)
[2017-09-18] MEDS: VERAPAMIL HCL 120 MG TABSR PO SCH (09:00)
[2017-09-18] MEDS: LISINOPRIL 2.5 MG TAB PO SCH ×2 (09:00→16:45)
[2017-09-18] MEDS ORDERED: QUETIAPINE FUMARATE 25 MG TAB PO SCH (09:00)
[2017-09-18] MEDS ORDERED: IBUPROFEN 400 MG TAB PO PRN (10:15)
[2017-09-18] MEDS: HYDROCODONE/APAP 10MG-325MG TAB PO PRN ×3 (12:15→21:54)
--- NOTE | 2017-09-18 20:31 | Diagnostic Imaging Report ---
A single frontal view of the chest. HISTORY: Status post line placement, foot ulcer COMPARISON: None available. DISCUSSION: Portable technique, limits sensitivity of the exam. Soft tissue attenuation partially limits sensitivity of the exam. Overlying clothing artifacts. Tubes/Lines: Right upper extremity PICC line, the tip projects in the region of the distal superior vena cava. Lungs and pleura: Low lung volumes result in bibasilar vascular crowding, accentuation of the pulmonary interstitial markings, central pulmonary vasculature, and the cardiac silhouette. Allowing for these limitations, the findings are as follows: Mild left basilar volume loss and subtle patchy opacity. No definite pleural effusion or pneumothorax is identified. Heart and mediastinum: The cardiomediastinal silhouette appears unremarkable. Bones: No acute osseous lesion is identified, given this limited exam. IMPRESSION: 1. Status post right upper extremity PICC line placement. 2. Left basilar atelectasis versus possible pneumonia or aspiration in the appropriate setting. Signed by: Dr. Grover Hay D.O., M.M.M. on 09/18/2017 8:28 PM
[2017-09-18] MEDS: PIPER-TAZ 3.375 GM 100 ML IV SCH (21:00)
[2017-09-18] MEDS: ATORVASTATIN 20 MG TAB PO SCH (21:20)
[2017-09-18] MEDS: QUETIAPINE FUMARATE 25 MG TAB PO SCH (21:20)
[2017-09-18] MEDS ORDERED: CALCIUM CARBONATE 500 MG CHEWABLE TABS PO PRN (21:30)
[2017-09-19] VITALS (8 sets, daily range): BP systolic 93–134; BP diastolic 54–68
[2017-09-19] MEDS: PIPER-TAZ 3.375 GM 100 ML IV SCH ×5 (00:45→23:27)
[2017-09-19] MEDS: VANCOMYCIN 1GM/NS 250 ML 250 ML IV SCH ×2 (05:53→18:40)
[2017-09-19 07:17] LABS: BASOPHILS % 0.3 % (0.0-1.0); EOSINOPHILS % 0.4 % (0.0-6.0); HEMATOCRIT 35.3 % (34.2-44.1); HEMOGLOBIN 11.4 g/dL (12.0-16.0); LYMPHOCYTES # (AUTO) 1.4 (1.0-3.2); MEAN CORPUSCULAR HGB CONC 32.3 g/dL (31-35); MEAN CORPUSCULAR VOLUME 89.8 fL (81-99); MONOCYTES % 10.9 % (4.4-11.3); NEUTROPHILS # (AUTO) 6.6 (2.1-6.9); NEUTROPHILS % 72.7 % (38.7-80.0); PLATELET COUNT 116 x10e3/uL (140-360); RED BLOOD COUNT 3.93 x10e6/uL (3.6-5.1); RED CELL DISTRIBUTION WIDTH 14.7 % (11.7-14.4)
[2017-09-19] MEDS: INSULIN REGULAR, HUMAN 100 UNIT/1 ML 3ML VIAL SQ SCH ×4 (07:30→20:56)
[2017-09-19 07:44] LABS: ANION GAP 11.9 mmol/L (8-16); BLOOD UREA NITROGEN 12 mg/dL (7-26); BUN/CREATININE RATIO 18 (6-25); CALCIUM 8.9 mg/dL (8.4-10.2); CARBON DIOXIDE 22 mmol/L (22-29); CHLORIDE 108 mmol/L (98-107); CREATININE, SERUM 0.65 mg/dL (0.57-1.11); EST GLOMERULAR FILTRATION RATE > 60 ML/MIN (60-); GLUCOSE 89 mg/dL (74-118); POTASSIUM 3.9 mmol/L (3.5-5.1); SODIUM 138 mmol/L (136-145)
[2017-09-19] MEDS: PREGABALIN 75 MG CAP PO SCH ×2 (08:32→16:18)
[2017-09-19] MEDS: VERAPAMIL HCL 120 MG TABSR PO SCH (08:32)
[2017-09-19] MEDS: ALPRAZOLAM 0.25 MG TAB PO SCH ×2 (08:32→16:19)
[2017-09-19] MEDS: METFORMIN HCL 500 MG TAB PO SCH ×2 (08:32→16:18)
[2017-09-19] MEDS: DESVENLAFAXINE SUCCINATE 50 MG TAB.SR.24H PO SCH ×2 (08:32→16:19)
[2017-09-19] MEDS: PANTOPRAZOLE SOD 40 MG TABEC PO SCH (08:32)
[2017-09-19] MEDS: LISINOPRIL 2.5 MG TAB PO SCH ×2 (08:32→16:19)
[2017-09-19] MEDS: HYDROCODONE/APAP 10MG-325MG TAB PO PRN ×3 (08:37→23:31)
[2017-09-19 10:52] LABS: BLAST CELLS % MANUAL 1; EOSINOPHILS % (MANUAL) 1 % (0-7); LYMPHOCYTES % (MANUAL) 15 % (19-48); MONOCYTES % (MANUAL) 11 % (3.4-9.0); NEUTROPHILS % (MANUAL) 72 % (40-74)
[2017-09-19 10:53] LABS: ANISOCYTOSIS SLIGHT; PLATELET ESTIMATE SLIGHTLY DECREASED; PLATELET MORPHOLOGY COMMENT NORMAL; RBC MORPHOLOGY COMMENT NORMAL
--- NOTE | 2017-09-19 14:51 | Diagnostic Imaging Report ---
TECHNIQUE: Magnetic resonance imaging of the RIGHT foot was performed WITHOUT injected contrast. HISTORY: Foot ulcer COMPARISON: None available. DISCUSSION: Patient's movement throughout the MRI limits evaluation. Probable osteomyelitis involving the distal phalanx of the second toe. No visualized abscess. Atrophy of the foot musculature. IMPRESSION: Severely limited MRI. Probable osteomyelitis distal phalanx second toe. Signed by: Dr. Gonsalo Brandon M.D. on 09/19/2017 2:47 PM
--- NOTE | 2017-09-19 16:06 | Consultation ---
DATE OF CONSULTATION: CONSULTING PHYSICIAN: Dr. Romo REASON FOR CONSULTATION: Cellulitis, right lower extremity. Thank you so much for asking me to see this patient. 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 Patient coming with redness and swelling of her right lower extremity, which she had for a few days before she came here. The patient has been having problem with the foot and fourth toe, apparently had an ulcer and she has been seeing software support analyst for problem in her feet before. Now, she is coming with redness and swelling. Patient was admitted because she was not getting any better with oral antibiotic as outpatient. Patient is currently lying in bed comfortably. She is complaining of pain in the right foot. Otherwise, she denies any fever or chills. PAST MEDICAL HISTORY: Diabetes mellitus, obesity, hypertension, hyperlipidemia, traumatic brain injury. PAST SURGICAL HISTORY: Left toe amputation, great toe amputation, left shoulder surgery for rotator cuff, skin cancer removal, hysterectomy, cholecystectomy. ALLERGIES: LEVAQUIN AND CEPHALOSPORIN. SOCIAL HISTORY: There is no smoking, drug abuse, alcohol abuse. FAMILY HISTORY: Hypertension and diabetes. REVIEW OF SYSTEMS: HEENT: There is no headache, visual change or hearing change. GI: There is no nausea, no vomiting, no diarrhea. CARDIAC: There is no arrhythmia. NEURO: No seizure activity. SKIN: There are no new rashes. JOINTS: She has chronic aches and pain. LABORATORY DATA: Reviewed. On admission, white count 14.2, hemoglobin 13. Blood cultures showed gram-positive cocci, 2 sets. Sodium 136, potassium 3.7, creatinine 0.73, glucose of 151. PHYSICAL EXAMINATION: GENERAL: She is currently alert, oriented, does not seem to be in acute distress. VITAL SIGNS: Stable, currently afebrile. HEENT: She does not appear icteric. NECK: Supple. CHEST: Clear. HEART: S1 and S2. No murmur ABDOMEN: Soft, obese. EXTREMITIES: On the leg, there is erythema and edema. On the foot, the fourth toe seems to be red and swollen. IMPRESSION: 1. Cellulitis of the leg. 2. Bacteremia, concern Staphylococcus aureus. 3. Concern osteomyelitis of the foot. Agree with vancomycin, agree with Zosyn. Obtained x-ray of the foot which showed no evidence of osteo. Obtain podiatry evaluation. Obtain MRI of the foot, obtain vancomycin trough. Will follow with you. Thank you for asking me to see this patient. Job#: [id number]
--- NOTE | 2017-09-19 16:53 | Consultation ---
DATE OF CONSULTATION: September 19, 2017 PODIATRY CONSULT CHIEF COMPLAINT AND HISTORY OF CHIEF COMPLAINT: This is a most pleasant 66-year-old female who presents today complaining of painful swollen 2nd digit right foot with distal digital ulceration. Patient states that she regularly sees the doctors at the wound care center on [address] and was ultimately referred for hospitalization and further evaluation of her right foot. The patient states that she has had diabetes and distal peripheral neuropathy for a long time. She has had multiple amputations various digits both left and right feet. Some are partial. Some are complete. The right 5th digit has been completely amputated, and the 4th digit has a partial amputation. The left hallux has a partial amputation as well. PREVIOUS MEDICAL HISTORY: Includes diabetes, hypertension, hyperlipidemia, as well as traumatic brain injury after a fall. She has recently seen Dr. Engel for evaluation for that and recommended treatment. SURGICAL HISTORY: Includes the multiple amputations listed above, as well as left shoulder surgery for rotator cuff and hysterectomy, cholecystectomy. ALLERGIES: THE PATIENT IS ALLERGIC TO LEVAQUIN AND CEPHALOSPORINS. MEDICATIONS: She is currently on multiple medications well documented also within the chart. REVIEW OF SYSTEMS: Negative for pain other than that associated with the swelling bilateral lower extremities. There is an ulceration on the lateral aspect of the 5th metatarsal which is being treated by the wound care center and she states is currently not painful. PHYSICAL EVALUATION LOWER EXTREMITY VASCULAR STATUS: The patient has nonpalpable pedal pulses, neither dorsalis pedis nor posterior tibial. However, skin temperature is warm. Capillary refills are all within normal limits. NEUROLOGICALLY: She has a loss of protective sensation as evidenced by [place] monofilament testing. DERMATOLOGICALLY: There is the aforementioned ulceration on the lateral aspect of the 5th metatarsal base of the left foot, currently not infected, and she states it is improving and following a slow course of healing via wound care center debridements. The right foot has an ulceration on the distal aspect of the right 2nd digit. MUSCULOSKELETAL: Shows multiple amputations including on the right foot a partial amputation of the 4th digit and a complete amputation of the 5th digit. Radiographs reveal probable osteomyelitis of the 2nd digit of the right foot, and this is confirmed by MRI. DIAGNOSIS: Osteomyelitis 2nd digit distal phalanx right foot. I have recommended and the patient has agreed to accept amputation 2nd digit right foot with long-term IV antibiotics. She has an ascending cellulitis and lower extremity infection of the soft tissues as well, which will be treated with IV antibiotics concomitantly. Surgery will be scheduled for Sunday morning. Patient is to remain on IV antibiotics in the interim and will be n.p.o. midnight night. Thank you very much, Dr. Bush, for asking me to see this most pleasant patient. Job#: [id number] EV
[2017-09-19] MEDS: QUETIAPINE FUMARATE 25 MG TAB PO SCH (20:55)
[2017-09-19] MEDS: ATORVASTATIN 20 MG TAB PO SCH (20:55)
[2017-09-20] VITALS (7 sets, daily range): BP systolic 96–131; BP diastolic 55–71
[2017-09-20] MEDS: VANCOMYCIN 1GM/NS 250 ML 250 ML IV SCH ×2 (05:04→16:12)
[2017-09-20] MEDS: PIPER-TAZ 3.375 GM 100 ML IV SCH ×3 (06:43→17:51)
[2017-09-20 06:51] LABS: HEMATOCRIT 32.8 % (34.2-44.1); HEMOGLOBIN 10.6 g/dL (12.0-16.0); MEAN CORPUSCULAR HEMOGLOBIN 29.1 pg (28-32); MEAN CORPUSCULAR HGB CONC 32.3 g/dL (31-35); MEAN CORPUSCULAR VOLUME 90.1 fL (81-99); PLATELET COUNT 89 x10e3/uL (140-360); RED BLOOD COUNT 3.64 x10e6/uL (3.6-5.1); RED CELL DISTRIBUTION WIDTH 14.7 % (11.7-14.4)
[2017-09-20 07:19] LABS: ANION GAP 11.7 mmol/L (8-16); BLOOD UREA NITROGEN 12 mg/dL (7-26); BUN/CREATININE RATIO 18 (6-25); CALCIUM 8.5 mg/dL (8.4-10.2); CARBON DIOXIDE 22 mmol/L (22-29); CHLORIDE 108 mmol/L (98-107); CREATININE, SERUM 0.65 mg/dL (0.57-1.11); EST GLOMERULAR FILTRATION RATE > 60 ML/MIN (60-); GLUCOSE 102 mg/dL (74-118); POTASSIUM 3.7 mmol/L (3.5-5.1); SODIUM 138 mmol/L (136-145)
[2017-09-20] MEDS: INSULIN REGULAR, HUMAN 100 UNIT/1 ML 3ML VIAL SQ SCH ×4 (07:30→20:36)
[2017-09-20] MEDS: PANTOPRAZOLE SOD 40 MG TABEC PO SCH (08:10)
[2017-09-20] MEDS: METFORMIN HCL 500 MG TAB PO SCH ×2 (08:11→16:12)
[2017-09-20] MEDS: DESVENLAFAXINE SUCCINATE 50 MG TAB.SR.24H PO SCH ×2 (08:11→16:12)
[2017-09-20] MEDS: VERAPAMIL HCL 120 MG TABSR PO SCH (08:11)
[2017-09-20] MEDS: PREGABALIN 75 MG CAP PO SCH ×2 (08:11→16:12)
[2017-09-20] MEDS: ALPRAZOLAM 0.25 MG TAB PO SCH ×2 (08:11→16:12)
[2017-09-20] MEDS: LISINOPRIL 2.5 MG TAB PO SCH ×2 (08:11→16:12)
[2017-09-20 10:30] LABS: LYMPHOCYTES % (MANUAL) 19 % (19-48); MONOCYTES % (MANUAL) 13 % (3.4-9.0); NEUTROPHILS % (MANUAL) 66 % (40-74)
[2017-09-20 10:31] LABS: ANISOCYTOSIS SLIGHT; HYPOCHROMASIA SLIGHT; PLATELET ESTIMATE SLIGHTLY DECREASED; PLATELET MORPHOLOGY COMMENT FEW LARGE; RBC MORPHOLOGY COMMENT NORMAL
[2017-09-20] MEDS: HYDROCODONE/APAP 10MG-325MG TAB PO PRN (10:42)
[2017-09-20] MEDS: ATORVASTATIN 20 MG TAB PO SCH (20:35)
[2017-09-20] MEDS: QUETIAPINE FUMARATE 25 MG TAB PO SCH (20:35)
--- NOTE | 2017-09-20 22:10 | Progress Note ---
DATE: FOLLOWUP PROGRESS NOTE The patient was seen today with continued infection on the right foot and leg with osteomyelitis 2nd digit and abscess, cellulitis of the posterior aspect of the right leg. Results of MRI and labs reviewed with the patient. All questions asked were answered. Patient understands she is scheduled for an amputation of the 2nd digit of the right foot with I and D and deep wound debridement of the abscessed area including the posterior aspect of the leg were fairly superficial bulla is present. There was some fairly significant abscess, cellulitis, and infection ongoing. She will be treated with IV antibiotics on an outpatient basis after surgery. The wound redressed today and no further care was necessary other than dressing changes and IV antibiotics until surgery tomorrow. The patient agreed to accept all risks inherent to the procedure as outlined and discussed. We will be following her in-house until discharge after surgery tomorrow and then, intermittently on an outpatient basis. ROOM NUMBER: [id number] Job#: [id number] CQ
[2017-09-21] VITALS (7 sets, daily range): BP systolic 107–147; BP diastolic 61–81
[2017-09-21] MEDS: PIPER-TAZ 3.375 GM 100 ML IV SCH ×4 (00:08→17:04)
[2017-09-21] MEDS: HYDROCODONE/APAP 10MG-325MG TAB PO PRN ×2 (00:26→21:41)
[2017-09-21] MEDS: VANCOMYCIN 1GM/NS 250 ML 250 ML IV SCH ×2 (05:17→18:32)
[2017-09-21] MEDS ORDERED: NEOSTIGMINE 1 MG/ML 10ML VIAL ONE (07:04)
[2017-09-21] MEDS ORDERED: DEXAMETHASONE SOD PHOS INJ 4 MG/ML VIAL ONE (07:04)
[2017-09-21] MEDS ORDERED: BUPIVACAINE HCL 0.5% INJ 30 ML VIAL INJ ONE (07:04)
[2017-09-21] MEDS ORDERED: ACETAMINOPHEN 1000 MG/100 ML 100 ML IV ONE (07:04)
[2017-09-21] MEDS: INSULIN REGULAR, HUMAN 100 UNIT/1 ML 3ML VIAL SQ SCH ×4 (07:30→21:00)
[2017-09-21] MEDS: METFORMIN HCL 500 MG TAB PO SCH ×2 (08:51→17:03)
[2017-09-21] MEDS: LISINOPRIL 2.5 MG TAB PO SCH ×2 (08:52→17:04)
[2017-09-21] MEDS: PREGABALIN 75 MG CAP PO SCH ×2 (09:05→17:03)
[2017-09-21] MEDS: ALPRAZOLAM 0.25 MG TAB PO SCH ×2 (09:05→17:04)
[2017-09-21] MEDS: PANTOPRAZOLE SOD 40 MG TABEC PO SCH (09:05)
[2017-09-21] MEDS: DESVENLAFAXINE SUCCINATE 50 MG TAB.SR.24H PO SCH ×2 (09:05→17:04)
[2017-09-21] MEDS ORDERED: FENTANYL CITRATE/PF 100MCG/2 ML INJ ONE (11:35)
[2017-09-21] MEDS ORDERED: MIDAZOLAM HCL 2 MG/2 ML VIAL ONE (11:35)
[2017-09-21] MEDS ORDERED: PIPER-TAZ 3.375 GM 100 ML ONE (11:57)
--- NOTE | 2017-09-21 15:29 | Operative Report ---
DATE OF PROCEDURE: September 21, 2017 PREOPERATIVE DIAGNOSES 1. Osteomyelitis, distal phalanx, 2nd digit, right foot. 2. Abscess and cellulitis of posterior aspect of the right foot and leg. POSTOPERATIVE DIAGNOSES 1. Osteomyelitis, distal phalanx, 2nd digit, right foot. 2. Abscess and cellulitis of posterior aspect of the right foot and leg. TITLE OF OPERATIONS 1. Amputation, 2nd digit, right foot. 2. Incision and drainage with deep debridement of posterior aspect of the right foot and leg. ANESTHESIA: General endotracheal. HEMOSTASIS: A right thigh tourniquet at 350 mmHg. PROCEDURE IN DETAIL: The patient was taken to the operating room in a mildly sedated state and placed upon the operating table in the supine position. Following induction of general anesthetic, the right lower extremity was elevated to 60 degrees to exsanguinate before inflating the pneumatic thigh tourniquet to 350 mmHg for good hemostasis. Right lower extremity was placed upon the operating table prior to performing the procedure. PROCEDURE #1: Amputation of the 2nd digit, right foot. Two converging semi-elliptical incisions were made in a hockey stick shaped incision circumferentially around and overlying the proximal phalangeal joint of the 2nd digit of the right foot. The incision was deepened via sharp and blunt dissection down to the dorsal capsular structure. Care was taken to identify and retract all vital structures encountered. The head of the proximal phalanx along the surgical site was resected utilizing an oscillating saw after disarticulation of the remaining bone at the distal interphalangeal joint level. The bone itself separately at the distal aspect at the digit at the distal phalanx was cultured and further sent to pathology for further evaluation. The area remaining was irrigated with copious amounts of sterile saline solution. Deep closure was 3-0 Vicryl and 4-0 nylon. The areas of surgery were blocked with 0.5% Marcaine and Decadron [place]. Human tissue allograft was injected to facilitate healing. Attention was then directed to the posterior aspect of the right leg. A linear incision was made overlying the posterior bulla, which was quite inflamed. Soft tissue edema and erythema was surrounding. A fair amount of serosanguineous discharge was extruded from that area. The area was further debrided. An approximately 2-cm wound was present. The cellulitis extends all the way from the heel up to the distal one-third of the leg. An appropriate mildly compressive dressings were applied. Release of the pneumatic thigh tourniquet showed a normal hyperemic flush to all digits of the right foot. Patient left the operating room with vital signs stable and in apparent satisfactory condition, having tolerated both the anesthetic and procedure very well. She will be returning to the floor postoperatively to continue IV antibiotics and then ultimately discharged to home health or LTAC. Job#: [id number] SOPHIA
[2017-09-21] MEDS: VERAPAMIL HCL 120 MG TABSR PO SCH (17:03)
[2017-09-21] MEDS ORDERED: SEVOFLURANE INHAL SOLN 250 ML PEN BTL ONE (18:08)
[2017-09-21] MEDS ORDERED: PROPOFOL IV EMULSION 10 MG/ML 20 ML VIAL ONE (18:08)
[2017-09-21] MEDS ORDERED: ACETAMINOPHEN 1000 MG/100 ML IV ONE (18:08)
[2017-09-21] MEDS ORDERED: LIDOCAINE HCL 2% LOCAL INJ 5 ML SDV VIAL INJ ONE (18:08)
--- NOTE | 2017-09-21 19:37 | Diagnostic Imaging Report ---
EXAMINATION: CHEST 2 VIEWS INDICATION: \S\CLEANING/Septicemia \S\[id number] \S\1905 \S\Y COMPARISON: Chest radiograph 09/18/2017 FINDINGS: PA and lateral views TUBES and LINES: Right PICC with tip overlying the cavoatrial junction. LUNGS: Lungs are well inflated. Lungs are clear. There is no evidence of pneumonia or pulmonary edema. PLEURA: No pleural effusion or pneumothorax. HEART AND MEDIASTINUM: The cardiomediastinal silhouette is unremarkable. BONES AND SOFT TISSUES: Rotator cuff screw overlying the left humeral head. Soft tissues are unremarkable. UPPER ABDOMEN: No free air under the diaphragm. IMPRESSION: No acute thoracic abnormality. Left basilar atelectasis has improved. Signed by: Dr. Meseret Jaffe M.D. on 09/21/2017 7:33 PM
[2017-09-21] MEDS: QUETIAPINE FUMARATE 25 MG TAB PO SCH (21:00)
[2017-09-21] MEDS: ATORVASTATIN 20 MG TAB PO SCH (21:00)
[2017-09-22 00:14] VITALS: BP 127/63
--- NOTE | 2017-09-22 02:22 | Consultation ---
DATE OF CONSULTATION: September 21, 2017 HISTORY: This is a very nice 66-year-old lady who is known with long-standing history of diabetes mellitus. Patient for the last few months since April 2017 having "protrusion" of the bone on the left lateral aspect of her foot. She is followed in the wound care center. She took several antibiotics and she is followed in the wound care center. However, her major illness started with the right foot with the right 2nd digit becoming swollen, red, and fever and chills. She came to ER. She was treated. She continues to have symptoms. She is admitted to this institution, started on antibiotics, had blood culture, which grew group B streptococcus. She had amputation of the 2nd digit of the toe by Dr. Espinosa. She was diagnosed with osteomyelitis. She had PICC tube placement on the right arm. Cardiac consultation was obtained. I visited with the patient, who does have problem with her feet for a long time. She had removal of part of her left great digits few years back because of infection. She got "protruding bone" on the left lateral aspect of her foot. She is having redness in that area since April. She is followed by supplier engineer. Her acute illness started with the 2nd digit of the right toe with fever, chills, and diagnosis of osteomyelitis and she had amputation during this admission. Cardiac-harrell her activities are limited. She denied having any angina. There is no orthopnea. There is no paroxysmal nocturnal dyspnea. There is no syncope or presyncope. There is no history of heart murmur. There is no history of dental workup in the last few weeks prior to the admission. There is no history of any other surgery. REVIEW OF SYSTEMS: Extensive to all systems. Will be summarized for clarity. GENERAL: Fever, chills, but feeling well. CARDIAC: As per above. PULMONARY: No cough. No hemoptysis. GI: No hematemesis. No melena. No heartburn. No bleeding. : Increased frequency of urination. NEUROMUSCULAR: Severe peripheral neuropathy of the lower extremities. ENDOCRINE: Patient is diabetic and she does have severe peripheral neuropathy and end-organ damage. HEMATOLOGY: No easy bruising or bleeding. 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 CURRENT MEDICATIONS 1. Verapamil 240 mg a day. 2. Metformin 1000 mg twice a day. 3. Insulin sliding scale. 4. Lisinopril 5 mg twice a day. 5. Protonix 40 mg a day. 6. Seroquel 25 mg a day. 7. Lyrica 75 mg a day. 8. Ibuprofen. 9. Zosyn. ALLERGIES: CEPHALOSPORIN AND LEVAQUIN. PAST MEDICAL HISTORY: Long list including 1. Diabetes mellitus, end-organ damage, overweight, left foot with amputation of the left great toe digit and deformity of the left lateral aspect of the foot with wound and wound care since April. 2. Acute illness of the right foot. 3. Hypertension. 4. Hyperlipidemia. 5. Traumatic brain injury after a fall. 6. Left shoulder surgery for rotator cuff. 7. Skin cancer removal. 8. Hysterectomy. 9. Cholecystectomy. FAMILY HISTORY: No family history of premature coronary artery disease. PHYSICAL EXAM VITALS: Height of 5'9. Weight of 200 lbs. Temperature, he is currently febrile on admission. She was at 101. Blood pressure 160/70. Heart rate of 70. Respiratory rate of 18. HEENT: Pupils are reactive. NECK: No elevation of jugular venous pulsation. No bruit. SKIN AND MUCOSA: There are no evidence of petechia. NECK: No elevation of jugular venous pulsation. No bruit. No thyromegaly. CHEST: Clear to auscultation and percussion. HEART: PMI 5th left intercostal space on 1st and 2nd heart sounds. ABDOMEN: Soft with good bowel sounds. No organomegaly. No abdominal bruits. EXTREMITIES: No cyanosis. No clubbing. No edema. There is dressing over the right foot. There is loss of the digit of the left great toe. There is deformity of the left lateral aspect of the foot with protruding scaling and small ulcer. NEUROLOGIC: Awake, alert, oriented. No motor deficits. LAB DATA: White blood cell count of 6.3, hemoglobin 10.6, hematocrit 33%, platelet count 189,000. Sodium 148, potassium 3.7, BUN of 12, creatinine 0.7, glucose of 136. EKG showing sinus tachycardia. IMPRESSIONS AND PLAN 1. Admission with osteomyelitis of the right 2nd toe, status post amputation. 2. Fever and chills and septicemia with group B streptococcus. 3. Chronic left foot ulcer under treatment. 4. Obesity. 5. Hypertension. 6. Hyperlipidemia. 7. History of traumatic brain injury. 8. Peripheral neuropathy. Cardiac-harrell, would recommend more blood culture. Will do transthoracic echo. Will consult with ID and medicine for the need of transesophageal echocardiogram. Will follow patient's progression with you. Further steps to be done as needed. Questions are answered. Differential diagnosis are discussed. After resolution of acute illness, etcetera, patient needs also to have cardiac workup, which is recommended. Job#: [id number] CQ
[2017-09-22 04:00] VITALS: BP 101/53
[2017-09-22] MEDS: VANCOMYCIN 1GM/NS 250 ML 250 ML IV SCH (05:00)
[2017-09-22] MEDS: PIPER-TAZ 3.375 GM 100 ML IV SCH ×3 (06:00→12:00)
[2017-09-22] MEDS: HYDROCODONE/APAP 10MG-325MG TAB PO PRN ×2 (06:15→16:15)
[2017-09-22] MEDS: PANTOPRAZOLE SOD 40 MG TABEC PO SCH (07:30)
[2017-09-22] MEDS: INSULIN REGULAR, HUMAN 100 UNIT/1 ML 3ML VIAL SQ SCH ×4 (07:30→21:10)
[2017-09-22 07:33] LABS: BASOPHILS % 0.4 % (0.0-1.0); EOSINOPHILS # (AUTO) 0.1 (0.0-0.4); EOSINOPHILS % 1.4 % (0.0-6.0); HEMATOCRIT 31.6 % (34.2-44.1); HEMOGLOBIN 10.3 g/dL (12.0-16.0); LYMPHOCYTES % 40.7 % (18.0-39.1); MEAN CORPUSCULAR HGB CONC 32.6 g/dL (31-35); MONOCYTES # (AUTO) 0.5 (0.2-0.8); MONOCYTES % 9.1 % (4.4-11.3); NEUTROPHILS # (AUTO) 2.3 (2.1-6.9); NEUTROPHILS % 47.4 % (38.7-80.0); PLATELET COUNT 107 x10e3/uL (140-360); RED BLOOD COUNT 3.55 x10e6/uL (3.6-5.1); RED CELL DISTRIBUTION WIDTH 14.6 % (11.7-14.4)
[2017-09-22 08:00] VITALS: BP 110/60
[2017-09-22 08:02] LABS: ALANINE AMINOTRANSFERASE 21 IU/L (0-55); ALBUMIN 2.3 g/dL (3.5-5.0); ALBUMIN/GLOBULIN RATIO 0.8 (0.8-2.0); ALKALINE PHOSPHATASE 36 IU/L (40-150); ANION GAP 10.5 mmol/L (8-16); BLOOD UREA NITROGEN 6 mg/dL (7-26); BUN/CREATININE RATIO 9 (6-25); CALCIUM 8.5 mg/dL (8.4-10.2); CARBON DIOXIDE 25 mmol/L (22-29); CHLORIDE 108 mmol/L (98-107); CHOL/HDL RATIO 3.2 (3.0-3.6); CHOLESTEROL 76 MD/DL (0-199); CREATININE, SERUM 0.64 mg/dL (0.57-1.11); EST GLOMERULAR FILTRATION RATE > 60 ML/MIN (60-); GLUCOSE 128 mg/dL (74-118); HDL CHOLESTEROL 24 MG/DL (40-60); LDL CHOLESTEROL 28 MG/DL (60-130); POTASSIUM 3.5 mmol/L (3.5-5.1); SODIUM 140 mmol/L (136-145); TRIGLYCERIDES 120 MG/DL (0-149)
[2017-09-22 08:14] LABS: THYROID STIMULATING HORMONE 0.872 uIU/mL (0.350-4.940)
[2017-09-22] MEDS: DESVENLAFAXINE SUCCINATE 50 MG TAB.SR.24H PO SCH ×2 (09:00→17:00)
[2017-09-22] MEDS: PREGABALIN 75 MG CAP PO SCH ×2 (09:00→17:00)
[2017-09-22] MEDS: METFORMIN HCL 500 MG TAB PO SCH ×2 (09:00→17:00)
[2017-09-22] MEDS: VERAPAMIL HCL 120 MG TABSR PO SCH (09:00)
[2017-09-22] MEDS: ALPRAZOLAM 0.25 MG TAB PO SCH ×2 (09:00→17:00)
[2017-09-22] MEDS: LISINOPRIL 2.5 MG TAB PO SCH ×2 (09:00→17:00)
[2017-09-22 12:00] VITALS: BP 114/67
[2017-09-22 16:00] VITALS: BP 119/72
[2017-09-22] MEDS: CEFTRIAXONE SOD 1 GM VIAL IV SCH (17:46)
[2017-09-22 20:00] VITALS: BP 128/64
[2017-09-22] MEDS: QUETIAPINE FUMARATE 25 MG TAB PO SCH (20:34)
[2017-09-22] MEDS: ATORVASTATIN 20 MG TAB PO SCH (20:34)
--- NOTE | 2017-09-23 00:34 | Progress Note ---
DATE: September 22, 2017 Patient is seen at bedside. Family is at bedside. She is doing well. She has had a couple of questions for Dr. Espinosa regarding how long she is going to be nonweightbearing, when she will be able to return to work, and those were answered today. The dressing was removed. The sutures are intact. There is erythema and edema consistent with the level of surgical intervention. No streaking erythema. No ascending lymphangitis. Her white count is trending down. ASSESSMENT: 1. Status post amputation. 2. Osteomyelitis, right foot. 3. Cellulitis with group streptococcus B. PLAN: At this point, the amputation is healing well. There are no signs or symptoms of infection. She has a PICC line. She is going to go home on IV antibiotics if allowed by insurance, otherwise she will have to go to long-term acute care and she is aware of this. I discussed with her that she is going to be nonweightbearing to the foot for about 2 to 3 weeks. I am going to send physical therapy to show her how to use a walker and not ambulate on the lower extremity. I have answered all questions. We will continue to follow. Once she is discharged, she is going to followup outpatient. Job#: [id number] DR DICK
[2017-09-23 00:36] VITALS: BP 116/64
[2017-09-23 04:00] VITALS: BP 127/69
[2017-09-23] MEDS: CEFTRIAXONE SOD 1 GM VIAL IV SCH ×2 (06:10→18:00)
[2017-09-23] MEDS: PANTOPRAZOLE SOD 40 MG TABEC PO SCH (07:30)
[2017-09-23] MEDS: INSULIN REGULAR, HUMAN 100 UNIT/1 ML 3ML VIAL SQ SCH ×4 (07:30→21:00)
[2017-09-23 08:00] VITALS: BP 142/80
[2017-09-23] MEDS: LISINOPRIL 2.5 MG TAB PO SCH ×2 (09:00→17:00)
[2017-09-23] MEDS: DESVENLAFAXINE SUCCINATE 50 MG TAB.SR.24H PO SCH ×2 (09:00→17:00)
[2017-09-23] MEDS: METFORMIN HCL 500 MG TAB PO SCH ×2 (09:00→17:00)
[2017-09-23] MEDS: VERAPAMIL HCL 120 MG TABSR PO SCH (09:00)
[2017-09-23] MEDS: PREGABALIN 75 MG CAP PO SCH ×2 (09:00→17:00)
[2017-09-23] MEDS: ALPRAZOLAM 0.25 MG TAB PO SCH ×2 (09:00→17:00)
[2017-09-23] MEDS: HYDROCODONE/APAP 10MG-325MG TAB PO PRN ×2 (11:50→23:20)
[2017-09-23 12:00] VITALS: BP 149/85
[2017-09-23 16:00] VITALS: BP 142/73
[2017-09-23 20:00] VITALS: BP 128/62
[2017-09-23] MEDS: ATORVASTATIN 20 MG TAB PO SCH (20:55)
[2017-09-23] MEDS: QUETIAPINE FUMARATE 25 MG TAB PO SCH (20:55)
[2017-09-24 01:11] VITALS: BP 120/68
[2017-09-24 05:34] VITALS: BP 128/76
[2017-09-24] MEDS: CEFTRIAXONE SOD 1 GM VIAL IV SCH (06:01)
[2017-09-24] MEDS: INSULIN REGULAR, HUMAN 100 UNIT/1 ML 3ML VIAL SQ SCH ×3 (07:30→16:07)
[2017-09-24 07:37] LABS: BASOPHILS % 0.6 % (0.0-1.0); EOSINOPHILS # (AUTO) 0.1 (0.0-0.4); EOSINOPHILS % 2.2 % (0.0-6.0); HEMOGLOBIN 10.9 g/dL (12.0-16.0); LYMPHOCYTES # (AUTO) 1.5 (1.0-3.2); LYMPHOCYTES % 29.3 % (18.0-39.1); MEAN CORPUSCULAR HEMOGLOBIN 28.9 pg (28-32); MEAN CORPUSCULAR HGB CONC 32.1 g/dL (31-35); MEAN CORPUSCULAR VOLUME 90.2 fL (81-99); MONOCYTES # (AUTO) 0.4 (0.2-0.8); MONOCYTES % 8.5 % (4.4-11.3); NEUTROPHILS # (AUTO) 2.8 (2.1-6.9); PLATELET COUNT 121 x10e3/uL (140-360); RED BLOOD COUNT 3.77 x10e6/uL (3.6-5.1); RED CELL DISTRIBUTION WIDTH 14.5 % (11.7-14.4)
[2017-09-24 07:46] LABS: ANION GAP 9.7 mmol/L (8-16); BLOOD UREA NITROGEN 9 mg/dL (7-26); BUN/CREATININE RATIO 14 (6-25); CARBON DIOXIDE 29 mmol/L (22-29); CHLORIDE 106 mmol/L (98-107); CREATININE, SERUM 0.66 mg/dL (0.57-1.11); EST GLOMERULAR FILTRATION RATE > 60 ML/MIN (60-); GLUCOSE 122 mg/dL (74-118); POTASSIUM 3.7 mmol/L (3.5-5.1); SODIUM 141 mmol/L (136-145)
[2017-09-24 08:10] LABS: BAND NEUTROPHILS % (MANUAL) 1 %; LYMPHOCYTES % (MANUAL) 27 % (19-48); MONOCYTES % (MANUAL) 4 % (3.4-9.0); NEUTROPHILS % (MANUAL) 67 % (40-74); PLATELET ESTIMATE ADEQUATE; PLATELET MORPHOLOGY COMMENT NORMAL; RBC MORPHOLOGY COMMENT NORMAL
[2017-09-24 08:18] VITALS: BP 133/75
[2017-09-24] MEDS: PANTOPRAZOLE SOD 40 MG TABEC PO SCH (09:23)
[2017-09-24] MEDS: METFORMIN HCL 500 MG TAB PO SCH ×2 (09:27→16:07)
[2017-09-24] MEDS: PREGABALIN 75 MG CAP PO SCH ×2 (09:27→16:07)
[2017-09-24] MEDS: VERAPAMIL HCL 120 MG TABSR PO SCH (09:27)
[2017-09-24] MEDS: ALPRAZOLAM 0.25 MG TAB PO SCH ×2 (09:28→16:07)
[2017-09-24] MEDS: DESVENLAFAXINE SUCCINATE 50 MG TAB.SR.24H PO SCH ×2 (09:28→16:07)
[2017-09-24] MEDS: LISINOPRIL 2.5 MG TAB PO SCH (09:28)
[2017-09-24 10:01] VITALS: BP 133/75
[2017-09-24] MEDS ORDERED: HYDROCODONE/APAP 10MG-325MG TAB PO PRN (10:30)
[2017-09-24 11:52] VITALS: BP 141/78
[2017-09-24 16:15] VITALS: BP 130/81
[2017-09-24] MEDS ORDERED: LISINOPRIL 10 MG TAB PO SCH (17:00)
[2017-09-25] MEDS ORDERED: METFORMIN HCL 500 MG TAB PO SCH (08:00)
== END 2017-09-24 16:57 | disposition home or self-care (01) | DRG 854 ==
LOC: ER 14:51 → ERHOLD 17:30 → MED/SURG3 20:57
PROVIDERS: ADMIT Family Medicine; ATTEND Family Medicine
PROC: 0J9N0ZZ Drainage of Right Lower Leg Subcutaneous Tissue and Fascia, Open Approach (ICD-10-PCS; 2017-09-21)
PROC: 0Y6R0Z0 Detachment at Right 2nd Toe, Complete, Open Approach (ICD-10-PCS; principal; 2017-09-21 11:38)
DX: A40.1 Sepsis due to streptococcus, group B (principal); L03.115 Cellulitis of right lower limb; M86.9 Osteomyelitis, unspecified; L97.829 Non-pressure chronic ulcer of other part of left lower leg with unspecified severity; B95.1 Streptococcus, group B, as the cause of diseases classified elsewhere; E66.01 Morbid (severe) obesity due to excess calories; Z68.39 Body mass index [BMI] 39.0-39.9, adult; Z87.820 Personal history of traumatic brain injury; E78.5 Hyperlipidemia, unspecified; Z89.422 Acquired absence of other left toe(s); Z88.1 Allergy status to other antibiotic agents; E11.42 Type 2 diabetes mellitus with diabetic polyneuropathy; E11.69 Type 2 diabetes mellitus with other specified complication; Z79.84 Long term (current) use of oral hypoglycemic drugs; Z85.828 Personal history of other malignant neoplasm of skin; E66.9 Obesity, unspecified
CPT/HCPCS: 36415; 36569; 71045; 71046; 76000; 80048; 80053; 80061; 80202; 81001; 82948; 84443; 85007; 85025; 85027; 87040; 87071; 87075; 87086; 87186; 87205; 88305; 88311; 93005; 93306; 93971; 99284; J0696; J1100; J1956; J2001; J2250; J2270; J2543; J2710; J3370; J7030; J7050

== ENCOUNTER → 2017-09-17 | Outpatient (CLI) | payer OTHER, BC ==
[~2017-09-17] MED LIST changes: +ATORVASTATIN CA20 MG PO; -LIDOCAINE VISC 2% SOLN 15 ML UDC ONE; +LISINOPRIL2.5 MG PO; +LYRICA75 MG; +METFORMIN HCL500 MG PO; +PRISTIQ ER50 MG PO; +SEROQUEL25 MG PO; +VERAPAMIL ER120 MG; +VOLTAREN100 GM TOP; +XANAX0.25 MG
== END ==
LOC: WCC 13:23
PROVIDERS: ATTEND Family Medicine
DX: E11.621 Type 2 diabetes mellitus with foot ulcer (principal); L97.422 Non-pressure chronic ulcer of left heel and midfoot with fat layer exposed; L97.511 Non-pressure chronic ulcer of other part of right foot limited to breakdown of skin; L98.9 Disorder of the skin and subcutaneous tissue, unspecified; I10 Essential (primary) hypertension; E78.2 Mixed hyperlipidemia; F33.1 Major depressive disorder, recurrent, moderate

== ENCOUNTER → 2017-10-19 | Outpatient (CLI) | payer OTHER, BC | LOC: SLEEP 17:57 | PROVIDERS: ATTEND Radiology Neuroradiology | DX: G47.33 Obstructive sleep apnea (adult) (pediatric) (principal) | CPT/HCPCS: 95806 ==

== ENCOUNTER 2017-11-07 21:28 | Emergency (ER) | payer OTHER, BC ==
[~2017-11-07] VITALS: Ht 172.7 cm; Wt 118.8 kg
[2017-11-07] MEDS ORDERED: SUMATRIPTAN SUCCINATE 6 MG/0.5 ML VIAL SC ONE (22:00)
[2017-11-07] MEDS ORDERED: ONDANSETRON HCL 4 MG ORAL DISINTEGRATING TAB PO ONE (22:00)
--- NOTE | 2017-11-07 23:02 | Diagnostic Imaging Report ---
Exam: Head CT without contrast History: Headache Comparison studies: Brain MRI 05/04/2017 Technique: Axial images were obtained from the skull base to the vertex. Coronal and sagittal images reconstructed from the axial data. Intravenous contrast: None Findings: Scalp: No abnormalities. Bones: No fractures, blastic or lytic lesions. Brain sulci: Appropriate for age. Ventricles: Normal in size and configuration. No hydrocephalus. Extra-axial spaces: No masses, no fluid collection. Parenchyma: No abnormal densities. No masses, acute hemorrhage, acute or chronic vascular insults. Sellar/suprasellar region: No abnormalities. Craniocervical junction: Patent foramen magnum. No Chiari one malformation. 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 Changes of endoscopic sinus surgery with clear paranasal sinuses and patent postsurgical ostiomeatal units. Atherosclerotic calcifications in the carotid siphons and at the vertebrobasilar junction. IMPRESSION: No acute intracranial abnormalities. Signed by: Dr. Kentrell Larry M.D. on 11/07/2017 10:59 PM
[2017-11-07 23:21] VITALS: BP 148/66
== END 2017-11-07 23:30 | disposition home or self-care (01) ==
LOC: ER 21:28
DX: G43.909 Migraine, unspecified, not intractable, without status migrainosus (principal); I10 Essential (primary) hypertension; E11.9 Type 2 diabetes mellitus without complications; E78.5 Hyperlipidemia, unspecified; K21.9 Gastro-esophageal reflux disease without esophagitis; F32.9 Major depressive disorder, single episode, unspecified; G89.29 Other chronic pain
CPT/HCPCS: 70450; 99283; J3030